=== PATIENT | male | born 1980 | race Caucasian/White ===

== ENCOUNTER 2017-04-04 19:04 | Inpatient (IN) | payer SELFPAY ==
[2017-04-04] VITALS (9 sets, daily range): BP systolic 92–111; BP diastolic 50–57; PULSE 104–117; RESP 24–47; TEMP 99.1; O2SAT 87–100; Ht 180.3 cm; Wt 80.3 kg
[~2017-04-04] VITALS: Ht 180.3 cm; Wt 80.3 kg
[~2017-04-04 19:04] MED LIST: No current meds
--- OUTSIDE RECORDS SUMMARY | 2017-04-04 19:07 | XMS REPORT ---
Author Author Cileo Calloway Organization [facility] [place] Address [address] [place] [address] Care Team Providers Care Straddle Carrier Operator Name Role Phone Cielo Calloway Unavailable [phone] PROBLEMS Type Condition ICD9-CM Code URJ39-MS Code Onset Dates Condition Status SNOMED Code Problem Hyperlipidemia, unspecified hyperlipidemia type E78.5 Active 57516920 Problem Essential hypertension I10 Active 26791859 Assessment Anemia, unspecified type D64.9 Oct, Active 374832809 Problem Depression, unspecified depression type F32.9 Active 10250762 Problem Paresthesias R20.2 Active 82955993 ALLERGIES Unknown Allergies SOCIAL HISTORY No smoking Hx information available PLAN OF CARE Activity Details Pending Test Iron and TIBC (Iron Profile) ,Reason: VITAL SIGNS MEDICATIONS Medication Instructions Dosage Frequency Start Date End Date Duration Status Simvastatin 20 MG Orally Once a day 1 tablet in the evening 24h Oct, 30 day(s) Active Hydrochlorothiazide 12.5 MG Orally Once a day 1 capsule 24h 90 days Active Sertraline HCl 100 MG Orally Once a day 1 tablet 24h 90 days Active Lisinopril 10 MG Orally Once a day 1 tablet 24h 90 days Active RESULTS Name Result Date Reference Range Iron and TIBC (Iron Profile) 2016-11-07 Iron 80 65-175 Iron Binding Capacity 321 260-445 Percent Saturation 25 11-46 Unbound Iron Content 241 126-382 PROCEDURES Procedure Date Ordered Related Diagnosis Body Site IRON PROFILE 2 Nov 07, 2016 IRON PROFILE 1 Nov 07, 2016 IMMUNIZATIONS No Known Immunizations
--- OUTSIDE RECORDS SUMMARY | 2017-04-04 19:07 | XMS REPORT ---
Author Cielo Velázquez Organization [employer] Address Unknown Phone Unavailable Care Team Providers Care Hand Compositor Name Role Phone Cielo Calloway CP Unavailable Allergies, Adverse Reactions, Alerts Substance Reaction Event Type N.K.D.A. Info Not Available Non Drug Allergy Problems Problem Type Condition Code Onset Dates Condition Status Problem Depression, unspecified depression type F32.9 Active Problem Paresthesias R20.2 Active Problem Essential hypertension I10 Active Assessment Paresthesias R20.2 Active Assessment Encounter for immunization Z23 Active Assessment Essential hypertension I10 Active Assessment Depression, unspecified depression type F32.9 Active Medications Medication Code System Code Instructions Start Date End Date Status Dosage Lisinopril [facility] [address]-60 10 MG Orally Once a day 1 tablet Sertraline HCl [facility] [address]-43 100 MG Orally Once a day 1 tablet Hydrochlorothiazide [facility] [address]-82 12.5 MG Orally Once a day 1 capsule Procedures Procedure Coding System Code Date Fluzone/Fluarix IIV4 Pfree (age 3yr & older) CPT-4 12566 Oct 25, 2016 ADMINISTRATION, 1ST IMMUNIZATION CPT-4 82721 Oct 25, 2016 OFFICE VISIT, LOT PORTER-LOW COMPLEXITY (30 MIN.) CPT-4 37997 Oct 25, 2016 Vital Signs Date/Time: Oct 25, 2016 Temperature 98.3 F Height 71.50 in Weight 187.4 lbs Blood Pressure Diastolic 62 mm Hg Blood Pressure Systolic 144 mm Hg Cardiac Monitoring Heart Rate 80 /min BMI 25.77 Index Oximetry 96 % Results No Known Results Immunizations Vaccine Administration Date Fluzone/Fluarix IIV4 Pfree (age 3yr & older) Oct 25, 2016 Summary Purpose [employer] Submission
--- OUTSIDE RECORDS SUMMARY | 2017-04-04 19:07 | XMS REPORT ---
Author Cielo Velázquez [facility] [employer] Address Unknown Phone Unavailable Care Team Providers Care Information Systems Audit Manager Name Role Phone Cielo Calloway CP Unavailable Allergies No Known Allergies Problems Problem Type Condition Code Onset Dates Condition Status Problem Essential hypertension I10 Active Problem Depression, unspecified depression type F32.9 Active Problem Hyperlipidemia, unspecified hyperlipidemia type E78.5 Active Assessment Hyperlipidemia, unspecified hyperlipidemia type E78.5 Active Problem Paresthesias R20.2 Active Assessment Anemia, unspecified type D64.9 Active Medications Medication Code System Code Instructions Start Date End Date Status Dosage Simvastatin [facility] [address]-49 20 MG Orally Once a day Oct 26, 2016 1 tablet in the evening Results No Known Results Summary Purpose [employer] Submission
--- OUTSIDE RECORDS SUMMARY | 2017-04-04 19:08 | XMS REPORT | Continuity of Care Document ---
Author Author [facility] Organization [facility] Address Unknown Phone Unavailable Support Name Relationship Address Phone MARCH, OMER Thrasher DO Caregiver [address] [place] [address] Unavailable Insurance Providers Guarantor Jesus Stafford Address [address] [place] [id number] Email DENIED/NO TO PORTAL Payer Self Pay Subscriber's Name Jesus Stafford Relationship 18 Self Advance Directives Directive Response Recorded Date/Time Advanced Directives Type None 09/28/16 4:18pm Chief Complaint and Reason for Visit Chief Complaint Psychiatric Problems Reason for Visit [id number] Problems Past Problems Medical Problem Onset Date Psychiatric diagnosis Unknown Medications Current Home Medications Medication Dose Units Route Directions Days Qty Instructions Start Date No Current Meds 09/28/16 Social History Social History Problem Response Recorded Date/Time Onset Date Status Hx Substance Use No 09/28/2016 5:04pm Not Applicable Not Applicable Hx Alcohol Use Yes 09/28/2016 5:04pm Not Applicable Not Applicable Query Response Start Date Stop Date Smoking Status Current every day smoker Hospital Discharge Instructions No hospital discharge instructions. Plan of Care Discharge Date 09/29/16 6:49am Disposition 65 TO [facility] Condition at Discharge Stable Prescriptions See Medication Section Functional Status No functional status results. Allergies, Adverse Reactions, Alerts No known allergies. Immunizations Query Response on File Recorded Date/Time Influenza Vaccine Hx NO 09/28/16 5:04pm Vital Signs Acute Vital Signs Vital Response Date/Time Temperature (Fahrenheit) 98.9 deg F (96.8 - 99.1) 09/29/2016 6:49am Temperature (Calculated Celsius) 37.79304 degrees C (36.0 - 37.3) 09/29/2016 6:49am Pulse Rate (adult) 98 bpm (60 - 100) 09/29/2016 6:49am Respiratory Rate 18 breaths/min (10 - 20) 09/29/2016 6:49am O2 Sat by Pulse Oximetry 99 % (90 - 100) 09/29/2016 6:49am Blood Pressure 135/82 mm Hg 09/29/2016 6:49am Height (Feet) 5 feet 09/28/2016 4:10pm Height (Inches) 11.00 inches 09/28/2016 4:10pm Weight (Kilograms) 81.300 kg 09/28/2016 4:10pm Height 5 ft 11 in 09/28/2016 4:10pm Weight 179.24 lb 09/28/2016 4:10pm Body Mass Index 24.0 kg/m^2 09/28/2016 4:10pm Results Laboratory Results Test Name Result Units Flags Reference Collection Date/Time Result Date/ Time Comments White Blood Count 12.0 T/MM3 H 4.5-11.0 09/28/2016 4:pm 09/28/2016 4: 38pm Red Blood Count 4.77 M/MM3 4.50-5.90 09/28/2016 4:pm 09/28/2016 4: 38pm Hemoglobin 14.5 GM/DL 13.5-17.5 09/28/2016 4:pm 09/28/2016 4:38pm Hematocrit 41.8 % 41-53 09/28/2016 4:pm 09/28/2016 4:38pm Mean Corpuscular Volume 87.6 UM3 80-100 09/28/2016 4:pm 09/28/2016 4: 38pm Mean Corpuscular Hemoglobin 30.4 UUG 26-34 09/28/2016 4:pm 2015 4:38pm Mean Corpuscular Hemoglobin Concent 34.7 GM/DL 31-37 09/28/2016 4:09/28/2016 4:38pm RDW Standard Deviation 39.8 FL 36.9-50.2 09/28/2016 4:pm 09/28/2016 4 :38pm Platelet Count 299 T/MM3 130-400 09/28/2016 4:22pm 09/28/2016 4:38pm Mean Platelet Volume 9.2 UM3 L 9.4-12.4 09/28/2016 4:pm 09/28/2016 4: 38pm Neutrophils (%) (Auto) 51.5 % 33-66 09/28/2016 4:pm 09/28/2016 4: 38pm Lymphocytes (%) (Auto) 38.6 % 23-45 09/28/2016 4:pm 09/28/2016 4: 38pm Monocytes (%) (Auto) 6.8 % 0-9.0 09/28/2016 4:pm 09/28/2016 4:38pm Eosinophils (%) (Auto) 2.3 % 0-4 09/28/2016 4:pm 09/28/2016 4:38pm Basophils (%) (Auto) 0.6 % 0-2 09/28/2016 4:pm 09/28/2016 4:38pm Immature Granulocyte % (Auto) 0.2 % 0.0-0.5 09/28/2016 4:pm 2015 4:38pm Absolute Neutrophils (auto) 6.2 T/MM3 1.8-7.7 09/28/2016 4:pm 2015 4:38pm Absolute Lymphocytes (auto) 4.6 T/MM3 1-4.8 09/28/2016 4:2015 4:38pm Absolute Monocytes (auto) 0.8 T/MM3 0-0.8 09/28/2016 4:pm 09/28/2016 4:38pm Absolute Eosinophils (auto) 0.3 T/MM3 0-0.5 09/28/2016 4:pm 2015 4:38pm Absolute Basophils (auto) 0.1 T/MM3 0-0.2 09/28/2016 4:pm 09/28/2016 4:38pm Absolute Immature Granulocyte (auto 0.02 T/MM3 0.00-0.03 09/28/2016 4: 09/28/2016 4:38pm Icterus Index < 2 0-7 09/28/2016 4:pm 09/28/2016 4:43pm Chemistry Specimen Hemolysis < 15 0-25 09/28/2016 4:pm 09/28/2016 4 :43pm 0-25: Specimen Exhibited No Hemolysis. Turbidity < 20 0-20 09/28/2016 4:pm 09/28/2016 4:43pm Sodium Level 146 MEQ/L H 134-144 09/28/2016 4:pm 09/28/2016 4:49pm Potassium Level 3.7 MEQ/L 3.6-5 09/28/2016 4:09/28/2016 4:49pm Chloride Level 101 MEQ/L 98-107 09/28/2016 4:pm 09/28/2016 4:49pm Carbon Dioxide Level 25 MEQ/L 22-30 09/28/2016 4:09/28/2016 4: 49pm Anion Gap 20 MEQ/L H 5-15 09/28/2016 4:09/28/2016 4:49pm Blood Urea Nitrogen 8.0 MG/DL L 9-20 09/28/2016 4:09/28/2016 4: 49pm Creatinine 0.8 MG/DL 0.8-1.5 09/28/2016 4:pm 09/28/2016 4:49pm BUN/Creatinine Ratio 10 RATIO 6-26 09/28/2016 4:09/28/2016 4:49pm Glomerular Filtration Rate Calc 109 09/28/2016 4:pm 09/28/2016 4: 49pm Glucose Level 83 MG/DL 75-110 09/28/2016 4:09/28/2016 4:49pm Calculated Osmolality 278 MOSM/KG 261-280 09/28/2016 4:09/28/2016 4:49pm Calcium Level 9.8 MG/DL 8.4-10.2 09/28/2016 4:09/28/2016 4:49pm Phosphorus Level 4.2 MG/DL 2.5-4.5 09/28/2016 4:09/28/2016 4:49pm Total Bilirubin 0.50 MG/DL 0.20-1.30 09/28/2016 4:09/29/2016 4: 44am Alkaline Phosphatase 69 U/L 38-126 09/28/2016 4:09/29/2016 4:44am Total Protein 7.8 G/DL 6.3-8.2 09/28/2016 4:pm 09/29/2016 4:44am Albumin 4.9 G/DL 3.5-5.0 09/28/2016 4:pm 09/29/2016 4:44am Globulin 2.9 G/DL 2.4-3.6 09/28/2016 4:pm 09/29/2016 4:44am Albumin/Globulin Ratio 1.7 RATIO 1.1-2.2 09/28/2016 4:22pm 09/29/2016 4 :44am Aspartate Amino Transf (AST/SGOT) 77 U/L H 17-59 09/28/2016 4:22pm 09/29 4:44am Alanine Aminotransferase (ALT/SGPT) 75 U/L H 21-72 09/28/2016 4:22pm 02/2016 4:44am Magnesium Level 1.8 MG/DL 1.6-2.3 09/28/2016 4:22pm 09/28/2016 5:06pm Acetaminophen Level < 10 UG/ML L 09-2409/28/2016 4:pm 09/28/2016 4: 49pm TOXIC <4 HR POST INGESTION: >150 MG/L; TOXIC <12 HR POST INGESTION: >50 MG/L Salicylates Level < 1.0 MG/DL L 01-1509/28/2016 4:22pm 09/28/2016 4: 49pm Alcohol, Quantitative 95 MG/DL <10 09/29/2016 2:07am 09/29/2016 2:19am Thyroid Stimulating Hormone (TSH) 1.96 MIU/L 0.47-4.68 09/28/2016 4: 22pm 09/28/2016 5:38pm Urine Collection Type CLEANCATCH-MIDSTREAM 09/28/2016 4:30pm 2015 4:44pm Urine Color YELLOW YELLOW 09/28/2016 4:30pm 09/28/2016 4:44pm Urine Turbidity CLEAR CLEAR 09/28/2016 4:30pm 09/28/2016 4:44pm Urine Specific Hobson <=1.005 L 1.015-1.025 09/28/2016 4:30pm 2015 4:44pm Urine pH 5.5 5.0-8.0 09/28/2016 4:30pm 09/28/2016 4:44pm Urine Leukocyte Esterase NEGATIVE NEGATIVE 09/28/2016 4:30pm 2015 4:44pm Urine Nitrite NEGATIVE NEGATIVE 09/28/2016 4:30pm 09/28/2016 4:44pm Urine Protein NEGATIVE NEGATIVE 09/28/2016 4:30pm 09/28/2016 4:44pm Urine Glucose (UA) NEGATIVE NEGATIVE 09/28/2016 4:30pm 09/28/2016 4: 44pm Urine Ketones NEGATIVE NEGATIVE 09/28/2016 4:30pm 09/28/2016 4:44pm Urine Urobilinogen 0.2 EU/DL NORMAL 09/28/2016 4:30pm 09/28/2016 4: 44pm Urine Bilirubin NEGATIVE NEGATIVE 09/28/2016 4:30pm 09/28/2016 4: 44pm Urine Blood NEGATIVE NEGATIVE 09/28/2016 4:30pm 09/28/2016 4:44pm Urinalysis Comment MICROSCOPIC NOT IND. 09/28/2016 4:30pm 2015 4:44pm Procedures No known history of procedures. Encounters Encounter Location Arrival/Admit Date Discharge/Depart Date Attending Provider Departed Emergency Room [facility] 09/28/16 3:53pm 09/29/16 6: 49am OMER FARIAS DO Recent Diagnosis
--- NOTE | 2017-04-04 19:16 | NUR ---
PROVIDER DR. DAMON AT BEDSIDE.
[2017-04-04] MEDS ORDERED: MULT-933 PO (19:27)
[2017-04-04] MEDS ORDERED: LISI10TA7 PO (19:28)
[2017-04-04] MEDS ORDERED: ACET-3088 PO (19:29)
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
[2017-04-04] MEDS ORDERED: NORMAL SALINE 1,000 ML IV ONE (19:45)
[2017-04-04 19:48] LABS: BASOPHILS % (AUTO) 0.4 % (0-2); EOSINOPHILS # (AUTO) 0.1 T/MM3 (0-0.5); EOSINOPHILS % (AUTO) 1.1 % (0-4); HCT - HEMATOCRIT 33.7 % (41-53); HGB - HEMOGLOBIN 11.9 GM/DL (13.5-17.5); IMMATURE GRANULOCYTE # (AUTO) 0.03 T/MM3 (0.00-0.03); IMMATURE GRANULOCYTE % (AUTO) 0.3 % (0.0-0.5); LYMPHOCYTES # (AUTO) 2.5 T/MM3 (1-4.8); LYMPHOCYTES % (AUTO) 21.9 % (23-45); MEAN CORPUSCULAR HGB 31.6 UUG (26-34); MEAN CORPUSCULAR HGB CONC(MCHC 35.3 GM/DL (31-37); MEAN CORPUSCULAR VOLUME 89.4 UM3 (80-100); MEAN PLATELET VOLUME 10.7 UM3 (9.4-12.4); MONOCYTES # (AUTO) 1.4 T/MM3 (0-0.8); MONOCYTES % (AUTO) 12.5 % (0-9.0); NEUTROPHILS #(AUTO)-ABSOLUTE 7.3 T/MM3 (1.8-7.7); NEUTROPHILS % (AUTO) 63.8 % (33-66); RED BLOOD COUNT 3.77 M/MM3 (4.50-5.90); WBC - WHITE BLOOD COUNT 11.4 T/MM3 (4.5-11.0)
[2017-04-04 19:56] LABS: ACETAMINOPHEN < 10 UG/ML (10-30); ALBUMIN 4.3 G/DL (3.5-5.0); ALBUMIN/GLOBULIN RATIO 1.6 RATIO (1.1-2.2); ALKALINE PHOSPHATASE 76 U/L (38-126); ALT (SGPT) 115 U/L (21-72); ANION GAP 22 MEQ/L (5-15); AST (SGOT) 164 U/L (17-59); BUN/CREATININE RATIO 7 RATIO (6-26); CALCIUM 9.3 MG/DL (8.4-10.2); CHLORIDE 95 MEQ/L (98-107); CO2 - CARBON DIOXIDE 16 MEQ/L (22-30); CREATININE 3.8 MG/DL (0.8-1.5); ETHANOL 169 MG/DL (<10); GLOMERULAR FILTRATION RATE 18; GLUCOSE 142 MG/DL (75-110); SALICYLATE < 1.0 MG/DL (2-20); SODIUM 133 MEQ/L (134-144)
--- NOTE | 2017-04-04 19:58 | NUR ---
CT PT TO CT BY CART AT THIS TIME.
--- NOTE | 2017-04-04 20:07 | NUR ---
RETURN PT RETURNED FROM CT BY CART AT THIS TIME.
[2017-04-04 20:10] LABS: POTASSIUM 2.7 MEQ/L (3.6-5)
[2017-04-04] MEDS ORDERED: POTASSIUM CHLORIDE 20 MEQ TABLET PO ONE (20:15)
[2017-04-04] MEDS ORDERED: NS KCL 20 MEQ 1,000 ML IV ONE (20:15)
--- NOTE | 2017-04-04 20:15 | NUR ---
IVF ORDERS REC'D TO STOP 0.9% NS AT THIS TIME PER DR. DAMON.
--- NOTE | 2017-04-04 20:18 | NUR ---
IVF PT'S BP READS 88/50. PT ASYMPTOMATIC. DR. DAMON NOTIFIED. ORDERS REC'D TO COMPLETE REMAINING 300CC OF 0.9% NS AT THIS TIME.
[2017-04-04 20:50] LABS: THYROID STIM HORMONE-TSH 6.35 MIU/L (0.47-4.68)
[2017-04-04] MEDS ORDERED: MULTI-VIT INF, ADULT 10 ML, THIAMINE 100 MG, FOLIC ACID 1 MG in NORMAL SALINE 1,000 ML IV ONE ×4 (21:00)
[2017-04-04 21:01] LABS: BLOOD, URINE 3+ (NEGATIVE); COLOR,URINE YELLOW (YELLOW); LEUKOCYTE ESTERASE ,URINE NEGATIVE (NEGATIVE); NITRITE,URINE NEGATIVE (NEGATIVE); UROBILINOGEN,URINE 0.2 EU/DL (NORMAL)
[2017-04-04 21:07] LABS: BACTERIA,URINE 1+ (NEGATIVE); HYALINE CASTS, URINE 0-1 /LPF; MUCUS,URINE PRESENT
[2017-04-04 21:08] LABS: RBC,URINE 0-1 /HPF (0-3); SQUAMOUS EPITHELIAL CELL,UR 0-5
[2017-04-04 21:12] LABS: AMPHETAMINE SCREEN,URINE NEGATIVE; BARBITURATE SCREEN,URINE NEGATIVE; BENZODIAZEPINES SCREEN,URINE NEGATIVE; CANNABINOID SCREEN,URINE NEGATIVE; COCAINE SCREEN,URINE NEGATIVE; METHADONE SCREEN, URINE NEGATIVE; METHAMPHETAMINE SCREEN, URINE NEGATIVE; OPIATE SCREEN,URINE NEGATIVE; PHENCYCLIDINE SCREEN,URINE NEGATIVE; TRICYCLIC ANTIDEPRESSANT,URINE NEGATIVE
[2017-04-04 21:15] LABS: MAGNESIUM 2.2 MG/DL (1.6-2.3); PHOSPHORUS 4.7 MG/DL (2.5-4.5)
[2017-04-04] MEDS ORDERED: PROMETHAZINE 25 MG INJECTION IV PRN (21:15)
[2017-04-04] MEDS ORDERED: LORAZEPAM 2 MG/ML INJECTION IV PRN (21:15)
[2017-04-04] MEDS ORDERED: ONDANSETRON 4mg/2ml INJECTION IV PRN (21:15)
--- NOTE | 2017-04-04 21:16 | NUR ---
REPORT CALLED TO LUZ SOTOMAYOR ON CCU. DENIES QUESTIONS.
--- NOTE | 2017-04-04 21:25 | NUR ---
ADMIT PT TAKEN TO CCU, BED 2 BY CART PER THIS RN AT THIS TIME WITH FLUIDS CONTINUING TO INFUSE. PT SLIDES TO CCU BED WITHOUT ASSISTANCE. TOLERATES ACTIVITY WELL.
--- NOTE | 2017-04-04 21:25 | NUR ---
Admit Pt admitted to CCU Bed #2 from ED. Pt transfers from cart to bed by himself. Pt alert to name, place, month. Pt noted to have tremors and very restless, but cooperative with cares. Pt educated on surroundings including call light, bed. Pt HR noted to be 100-110's. Pt on RA. Pt denies nausea, SOA. Pt states he has 6.5/10- pain in lower back. Pt states he has chronic lower back pain and usually takes tylenol. Paddings applied to side rails for seizure precautions. Bed alarm on, will continue to monitor.
--- NOTE | 2017-04-04 21:55 | NUR ---
Dr Tae Strong beams on and assesses pt. Plan of care discussed with pt by Dr Strong.
--- NOTE | 2017-04-04 22:20 | HPPDOC ---
HPI - Adult Date DATE: 04/04/17 TIME: 22:07 General Chief Complaint: seizures and hallucinations History of Present Illness 36 yo M with PMH of EtOH abuse and suicidial ideation wt admission to psychiatric facility in September of 2016 presented to the ED [facility] with his who reports he has been having seizures, hallucinations and multiple falls at home. All associated with alcohol intoxication and alcohol withdrawal. Patient has been drinking large amounts of alcohol daily for about 3 months, he reports a 750ml bottle of vodka a day. Each time the patient tries to drinking , he has severe shaking episodes, severe body spasms, and begins having hallucinations of people who were not there, animals which are not in the house , as well as not recognizing people that he normally knows. Tonight the patient has had all of those symptoms, including a fall earlier in the week that seemed to increase his symptoms, when his found him at home. [place], and checks on him frequently, they are currently . Patient was found to have severe volume depletion in the ED with hypotension and increased BUN and Cr. He was admitted for further IVF and monitoring for his delirium tremens. Past Medical History Past Medical History Chronic alcohol abuse Delirium tremens Current Medications Home Meds Reported Medications Acetaminophen (Tylenol Arthritis) 650 Mg Tablet.er, 1 TAB PO Q4H Y for PAIN 04/04/17 Lisinopril (Lisinopril) 10 Mg Tablet, 10 MG PO DAILY 04/04/17 Multivitamin (Multi-Day Vitamins) 1 Each Tablet, 1 TAB PO DAILY 04/04/17 Allergies: Coded Allergies: No Known Allergies (Unverified , 09/28/16) Family History Family History: non contributory Social History Smoking Status: Never smoker Does patient use chewing tobac: No Second Hand Exposure: No Substance Use Type: does not use Alcohol Intake: daily, 2+ drinks per day Last Drink: hours (ago) (1) Marital Status: Seperated Review of Systems Unable to Obtain ROS Due to: intoxication Constitutional: REPORTS: see HPI Eyes General: DENIES: burning, dryness, erythema, exudate, foreign body sensation, itching, other, pain, photophobia, see HPI, subconjunctival bleed, watering ENMT Balance: see HPI Mouth/Throat: DENIES: bleeding gums, blisters, caries, change in swallowing, change in taste, change in voice, drooling, dry mouth, growths, hoarsness, loose teeth, masses, other, pain, painful swallowing, scratchy throat, see HPI, sore throat, sores, ulcers Cardiovascular DENIES: chest pain, dyspnea on exertion, hx of rheumatic fever, murmur, orthopnea, other, paroxysmal nocturnal dysp, see HPI Rhythm/Rate: DENIES: bradycardia, irregular beat, other, palpitations, see HPI , tachycardia Pulmonary Respiratory: DENIES: cough, dyspnea, exposure to TB, hyperventilation, other, pleuritic chest pain, pneumonia hx, see HPI, sputum, tachypnea GI Upper Abdomen: DENIES: abdominal swelling, dysphagia, food intolerances, heartburn/indigestion, hematemesis, nausea, other, pain, see HPI, vomiting Lower Abdomen: diarrhea, DENIES: blood in stool, marlene-colored stools, constipation, melena, other, pain, painful BM, see HPI Musculoskeletal General: DENIES: atrophy of muscles, cramps, edema, joint pain, joint swelling , other, pain, see HPI, spasm, tenderness, weakness Integumentary Skin: DENIES: color change, infections, itching, lesion, mole, other, rash, see HPI, sores, tumor, ulcers Physical Exam General General Nourishment: other Vital Signs Vital Signs Date Time Temp Pulse Resp B/P Pulse Ox O2 Delivery O2 Flow Rate FiO2 04/04/17 21:25 97.8 111 18 102/49 100 Room Air Height (Feet): 5 Height (Inches): 11.00 Respiratory Brief: FOUND: clear all stark, equal bilaterally Cardiovascular (brief) Cardiac Brief: FOUND: regular rate, regular rhythm Abdomen (brief) Abdominal Brief: FOUND: BS normo active x4, soft Musculoskeletal (brief) Musculoskeletal Brief: FOUND: extremities move equally, NOT FOUND: deformity, loss of motion, other, spasm, tenderness Integumentary (brief) Integumentary Brief: FOUND: other (bruises in various stages of healing) Neurologic (brief) Neurological Brief: FOUND: cranial 2-12 intact Neurologic RN Documented GCS Eye Opening: (4)Spontaneous Verbal: (4)Confused Motor: (6)Obeys Commands Total: Psychiatric (brief) FOUND: other (poor insight) Laboratory Laboratory Tests Test 04/04/17 19:34 04/04/17 19:37 04/04/17 20:54 04/04/17 21:15 Phosphorus Level 4.7MG/DL Magnesium Level 2.2MG/DL White Blood Count 11.4T/MM3 Red Blood Count 3.77M/MM3 Hemoglobin 11.9GM/DL Hematocrit 33.7% Mean Corpuscular Volume 89.4UM3 Mean Corpuscular Hemoglobin 31.6UUG Mean Corpuscular Hemoglobin Concent 35.3GM/DL RDW Standard Deviation 44.7FL Platelet Count 134T/MM3 Mean Platelet Volume 10.7UM3 Immature Granulocyte % (Auto) 0.3% Neutrophils (%) (Auto) 63.8% Lymphocytes (%) (Auto) 21.9% Monocytes (%) (Auto) 12.5% Eosinophils (%) (Auto) 1.1% Basophils (%) (Auto) 0.4% Absolute Immature Granulocyte (auto 0.03T/MM3 Absolute Neutrophils (auto) 7.3T/MM3 Absolute Lymphocytes (auto) 2.5T/MM3 Absolute Monocytes (auto) 1.4T/MM3 Absolute Eosinophils (auto) 0.1T/MM3 Absolute Basophils (auto) 0.0T/MM3 Turbidity < 20 Sodium Level 133MEQ/L Potassium Level 2.7MEQ/L Chloride Level 95MEQ/L Carbon Dioxide Level 16MEQ/L Anion Gap 22MEQ/L Blood Urea Nitrogen 27.0MG/DL Creatinine 3.8MG/DL Glomerular Filtration Rate Calc 18 BUN/Creatinine Ratio 7RATIO Glucose Level 142MG/DL Calculated Osmolality 263MOSM/KG Calcium Level 9.3MG/DL Total Bilirubin 0.50MG/DL Icterus Index < 2 Aspartate Amino Transf (AST/SGOT) 164U/L Alanine Aminotransferase (ALT/SGPT) 115U/L Alkaline Phosphatase 76U/L Total Protein 7.0G/DL Albumin 4.3G/DL Globulin 2.7G/DL Albumin/Globulin Ratio 1.6RATIO Thyroid Stimulating Hormone (TSH) 6.35MIU/L Chemistry Specimen Hemolysis < 15 Salicylates Level < 1.0MG/DL Acetaminophen Level < 10UG/ML Alcohol, Quantitative 169MG/DL Urine Collection Type Cleancatch-midstream Urine Color Yellow Urine Turbidity Sl cloudy Urine pH 5.5 Urine Specific Speer 1.010 Urine Protein 1+ Urine Glucose (UA) Negative Urine Ketones Negative Urine Blood 3+ Urine Nitrite Negative Urine Bilirubin 2+ Urine Urobilinogen 0.2EU/DL Urine Leukocyte Esterase Negative Urine RBC 0-1/HPF Urine WBC 1-3/HPF Urine Squamous Epithelial Cells 0-5 Urine Amorphous Urates Few Urine Bacteria 1+ Urine Hyaline Casts 0-1/LPF Urine Mucus Present Urine Culture Indicated Cult not indicated Urine Opiates Screen NegativeNG/ML Urine Oxycodone Screen NegativeNG/ML Urine Methadone Screen NegativeNG/ML Urine Propoxyphene Screen NegativeNG/ML Urine Barbiturates Screen NegativeNG/ML Urine Tricyclic Antidepressants NegativeNG/ML Urine Phencyclidine Screen NegativeNG/ML Urine Amphetamines Screen NegativeNG/ML Urine Methamphetamines Screen NegativeNG/ML Urine Benzodiazepines Screen NegativeNG/ML Urine Cocaine Screen NegativeNG/ML Urine Cannabinoids Screen NegativeNG/ML Lab Scanned Report REFERENCE [id number] Sepsis Diagnostic Criteria Sepsis Confirmed/Suspected Infection: No Assessment & Plan Problems: (1) Delirium tremens Status: Acute Assessment & Plan: due to Etoh use and withdrawal at home. Patient admitted to the ICU, put on seizure precautions and given librium 25mg Q4H and ativan PRN for withdrawal. Patient reports he is ready to quit drinking. (2) Acute renal insufficiency Status: Acute Assessment & Plan: due to dehydration from 3 months of alcohol use. Give IVF after banana bag, start D5W with NS and 20 of K. Monitor UOP and BUN/cr. (3) Alcohol intoxication Status: Acute Qualifiers: Complication of substance-induced condition: with delirium Qualified Codes : F10.921 - Alcohol use, unspecified with intoxication delirium Assessment & Plan: supportive care for withdrawal (4) Dehydration Status: Acute Assessment & Plan: IVF, patients BP already responding to fluids, continue overnight. (5) Hypokalemia Status: Acute Assessment & Plan: replace PO and IV. Mag WNL. Recheck in AM. (6) Alcohol abuse Status: Acute DVT Prophylaxis: STACEY Amin Code Status Full Code Hospital Course Summary Disclaimer The hospital course summary below is not to be considered part of the above Progress Note. RAS MODI MD April 04, 2017 22:12
[2017-04-04] MEDS: NICOTINE 14 MG PATCH TD SCH (22:31)
[2017-04-04] MEDS: CHLORDIAZEPOXIDE 25 MG CAPSULE PO SCH (22:31)
[2017-04-04] MEDS: OXYCODONE I.R. 5 MG TABLET PO PRN (22:39)
--- NOTE | 2017-04-04 22:39 | NUR ---
Nicoderm/Oxycodone/Librium Librium admin per orders. Educated pt on medication including side effects and reason for medication. Nicoderm offered and pt accepts. Pt states he smokes a pack a day. Oxycodone offered and pt accepts. Pt states he has 6/10 pain in lower back.
--- NOTE | 2017-04-04 23:15 | NUR ---
Friend Pt's friend, Kalina, calls for update. Pt ok's for update to be given to Kalina.
[2017-04-04] MEDS: POTASSIUM CHLORIDE 20 MEQ in D5W 1,000 ML IV SCH (23:40)
--- NOTE | 2017-04-04 23:40 | NUR ---
Pain reassess pt states his lower back pain is 1.5/10 in lower back.
[2017-04-05] VITALS (31 sets, daily range): BP systolic 95–149; BP diastolic 50–91; PULSE 86–133; RESP 19–43; TEMP 98.5–99.1; O2SAT 95–100
--- NOTE | 2017-04-05 01:21 | NUR ---
Ativan Pt noted to be getting more restless/increased tremors/shakes. PRN Ativan discussed with pt and pt states he wants it. PRN Ativan admin.
[2017-04-05] MEDS: CHLORDIAZEPOXIDE 25 MG CAPSULE PO SCH ×5 (02:12→17:40)
--- NOTE | 2017-04-05 02:12 | NUR ---
Ativan Pt continues to be restless/moves about in bed. Pt train of thought is erratic. Pt needs frequent reorientation. Pt HR 110-130's. Discussed one time dose of Ativan (2mg) with pt and he accepts. PRN Ativan admin.
[2017-04-05] MEDS ORDERED: LORAZEPAM 2 MG/ML INJECTION IV ONE (02:15)
--- NOTE | 2017-04-05 02:51 | NUR ---
Haldol Pt HR now up to 150's. Pt continues to move about all over in bed, train of thought continues to be erratic. Pt sweating. Dr Chauhan orders PRN Haldol. PRN Haldol admin for pt comfort.
[2017-04-05] MEDS ORDERED: HALOPERIDOL 5 MG/ML INJECTION IV PRN (03:00)
[2017-04-05] MEDS ORDERED: DEXMEDETOMIDINE 200 MCG/2 ML IV ONE (03:30)
--- NOTE | 2017-04-05 04:05 | NUR ---
Medication reassess/Librium Pt continues to be restless, although pt has been slowing down a little with his movements/tremors. Pt alert to name only at this time. Pt continues to be sweaty. HR down to 120's mostly. Dr Chauhan orders Librium 50 mg q4h and give dose now. Sched Librium admin.
--- NOTE | 2017-04-05 05:00 | NUR ---
Hallucinations Pt resting in bed most of time, but will occasionally sit straight up in bed and attempt to get out of bed. Pt hallucinates: states there are elephants in the room, and that there are poor people trying to come into the boat. Sitter at bedside for pt safety as he has pulled out an IV and pulled apart an O2 monitor. Pt alert to name only. Reorientation given. Pt calmer if nurse in room at bedside and gives reassurance. Will continue to monitor.
[2017-04-05] MEDS ORDERED: LORAZEPAM 2 MG/ML INJECTION IV PRN (05:15)
--- NOTE | 2017-04-05 05:15 | NUR ---
Rest Pt noted to be resting quietly in bed at this time with eyes closed. HR 100-low 110's. Will continue to monitor.
[2017-04-05 06:30] LABS: HCT - HEMATOCRIT 32.7 % (41-53); HGB - HEMOGLOBIN 11.1 GM/DL (13.5-17.5); MEAN CORPUSCULAR HGB 30.8 UUG (26-34); MEAN CORPUSCULAR HGB CONC(MCHC 33.9 GM/DL (31-37); MEAN CORPUSCULAR VOLUME 90.8 UM3 (80-100); MEAN PLATELET VOLUME 10.5 UM3 (9.4-12.4)
[2017-04-05 06:41] LABS: ALBUMIN 3.8 G/DL (3.5-5.0); ALBUMIN/GLOBULIN RATIO 1.5 RATIO (1.1-2.2); ALKALINE PHOSPHATASE 64 U/L (38-126); ALT (SGPT) 99 U/L (21-72); ANION GAP 12 MEQ/L (5-15); AST (SGOT) 151 U/L (17-59); BUN/CREATININE RATIO 12 RATIO (6-26); CALCIUM 8.7 MG/DL (8.4-10.2); CHLORIDE 109 MEQ/L (98-107); CO2 - CARBON DIOXIDE 22 MEQ/L (22-30); CREATININE 1.4 MG/DL (0.8-1.5); GLOMERULAR FILTRATION RATE 57; GLUCOSE 91 MG/DL (75-110); POTASSIUM 3.3 MEQ/L (3.6-5); SODIUM 143 MEQ/L (134-144); TOTAL PROTEIN 6.3 G/DL (6.3-8.2)
[2017-04-05 07:19] LABS: BAND NEUTROPHILS # 0.1 T/MM3; EOSINOPHILS # (MANUAL) 0.4 T/MM3 (0-0.5); LYMPHOCYTES # (MANUAL) 3.3 T/MM3 (1-4.8); MONOCYTES # (MANUAL) 0.7 T/MM3 (0-0.8); NEUTROPHILS #(MANUAL)-ABSOLUTE 5.5 T/MM3 (1.8-7.7); TOTAL CELLS COUNTED 100 %
--- NOTE | 2017-04-05 08:32 | NUR ---
Rest Pt continues to appear to be resting well in bed. VSS. Will continue to monitor.
--- NOTE | 2017-04-05 08:45 | PNPDOC ---
Progress Note Date 04/05/17 I arrived on CCU earlier this morning to evaluate the patient. He had a very difficult night and is finally sleeping. Currently vital signs are stable with heart rate of 93, blood pressure 102/63, O2 sat of 96% on room air. He appears to be sleeping comfortably. He is occasionally snoring. I have reviewed his lab work and H&P. I will return later today when the patient is awake. Overall, lab work looks better this morning. ANGELES HAUSER MD April 05, 2017 08:45
--- NOTE | 2017-04-05 09:18 | DI ---
EXAM: CT HEAD W/O CONTRAST COMPARISON: None available. HISTORY: ITS.REASON: fall several days ago with seizure and hallucinations LOCATION OF DICTATION: [facility] [place]. TECHNIQUE: Axial images were obtained through the brain without IV contrast. Study is reviewed in brain, bone, subdural, and soft tissue windows. The current CT scan was performed using radiation dose-reduction techniques. FINDINGS: The monzon-white junctions are distinct. No sulcal effacement is identified. There is no evidence for intracranial hemorrhage. The cerebrospinal fluid spaces appear unremarkable. No abnormal extra-axial fluid collections are identified to suggest subdural or epidural hematoma. The midline structures appear unremarkable as well. There is no evidence for midline shift or mass effect. The suprasellar cistern and quadrigeminal plate cisterns are intact. No osseous abnormalities are identified. There is no evidence for displaced skull fracture. No space occupying mass is identified. No definite evidence for acute or subacute ischemia is identified. The mastoid air cells are clear. The paranasal sinuses able to be visualized are clear. IMPRESSION: Unremarkable exam. NOTE: This study was reviewed via teleradiology by vRbeulah and a preliminary impression consistent with above findings was conveyed to the ordering clinician immediately after the exam. .
--- NOTE | 2017-04-05 09:35 | NUR ---
Rest Pt continues to rest. Female friend joins at bedside. VSS. Will continue to monitor.
[2017-04-05] MEDS: THIAMINE 100 MG TABLET PO SCH (10:25)
[2017-04-05] MEDS: NICOTINE 14 MG PATCH TD SCH (10:25)
[2017-04-05] MEDS: NICOTINE PATCH REMOVAL TD SCH (10:25)
[2017-04-05] MEDS: POTASSIUM CHLORIDE 20 MEQ in D5W 1,000 ML IV SCH (10:25)
--- NOTE | 2017-04-05 10:46 | NUR ---
Awake Pt awakens easily when name is called. takes pills whole without difficulty. Answers a/o questions appropriately, but is delayed with answers. Does still make some "off the wall" comments. Asks "How's my bird flu" and talks in depth about how fun the [employer] ride was. Female friend remains at bedside. Will continue to monitor.
[2017-04-05 13:55] LABS: INR 0.91 (0.76-1.04); PROTHROMBIN TIME 9.9 SEC (9.31-12.49)
[2017-04-05 14:02] LABS: ALBUMIN 3.7 G/DL (3.5-5.0); ANION GAP 10 MEQ/L (5-15); BUN/CREATININE RATIO 12 RATIO (6-26); CALCIUM 8.6 MG/DL (8.4-10.2); CHLORIDE 109 MEQ/L (98-107); CO2 - CARBON DIOXIDE 23 MEQ/L (22-30); CREATININE 0.9 MG/DL (0.8-1.5); GLOMERULAR FILTRATION RATE 95; GLUCOSE 105 MG/DL (75-110); PHOSPHORUS 2.6 MG/DL (2.5-4.5); POTASSIUM 3.6 MEQ/L (3.6-5); SODIUM 142 MEQ/L (134-144)
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
--- NOTE | 2017-04-05 17:05 | NUR ---
Status Pt has done well this afternoon. No hallucinations (auditory or visual) have been noted since approx 1200. Pt has eaten and had enough fluids throughout shift. Up to BR with assistance of 1. Much better on feet as the day as progressed. Pt c/o minor lower back pain that he reports as normal and has denied any need for pain medication. Family has remained at bedside throughout shift. Pt falls asleep very quickly and easily, but arouses very easily as well. Will continue to monitor.
[2017-04-05] MEDS: FOLIC ACID 1 MG TABLET PO SCH (17:40)
[2017-04-05] MEDS: OXYCODONE I.R. 5 MG TABLET PO PRN (20:10)
[2017-04-05] MEDS ORDERED: GUAIFENESIN PO PRN (20:30)
[2017-04-05] MEDS ORDERED: CODEINE PO PRN (20:30)
[2017-04-06] VITALS (37 sets, daily range): BP systolic 97–160; BP diastolic 56–100; PULSE 61–114; RESP 17–57; TEMP 97.3–99; O2SAT 93–100
[2017-04-06] MEDS: CHLORDIAZEPOXIDE 25 MG CAPSULE PO SCH ×3 (00:43→18:36)
[2017-04-06 01:34] LABS: IRON 210 UG/DL (49-181)
[2017-04-06 02:43] LABS: FOLATE 14.9 NG/ML (2.76-20); VITAMIN B12 - BATCH > 1000 PG/ML (239-931)
[2017-04-06 04:39] LABS: BASOPHILS % (AUTO) 0.4 % (0-2); EOSINOPHILS # (AUTO) 0.5 T/MM3 (0-0.5); EOSINOPHILS % (AUTO) 6.1 % (0-4); HCT - HEMATOCRIT 32.7 % (41-53); HGB - HEMOGLOBIN 11.1 GM/DL (13.5-17.5); IMMATURE GRANULOCYTE # (AUTO) 0.01 T/MM3 (0.00-0.03); IMMATURE GRANULOCYTE % (AUTO) 0.1 % (0.0-0.5); LYMPHOCYTES # (AUTO) 2.7 T/MM3 (1-4.8); LYMPHOCYTES % (AUTO) 34.9 % (23-45); MEAN CORPUSCULAR HGB 31.3 UUG (26-34); MEAN CORPUSCULAR HGB CONC(MCHC 33.9 GM/DL (31-37); MEAN CORPUSCULAR VOLUME 92.1 UM3 (80-100); MEAN PLATELET VOLUME 9.6 UM3 (9.4-12.4); MONOCYTES % (AUTO) 13.6 % (0-9.0); NEUTROPHILS #(AUTO)-ABSOLUTE 3.4 T/MM3 (1.8-7.7); NEUTROPHILS % (AUTO) 44.9 % (33-66); RED BLOOD COUNT 3.55 M/MM3 (4.50-5.90); WBC - WHITE BLOOD COUNT 7.7 T/MM3 (4.5-11.0)
[2017-04-06 04:53] LABS: ALBUMIN 3.7 G/DL (3.5-5.0); ALBUMIN/GLOBULIN RATIO 1.5 RATIO (1.1-2.2); ALKALINE PHOSPHATASE 60 U/L (38-126); ALT (SGPT) 98 U/L (21-72); ANION GAP 9 MEQ/L (5-15); AST (SGOT) 117 U/L (17-59); BUN/CREATININE RATIO 14 RATIO (6-26); CHLORIDE 111 MEQ/L (98-107); CO2 - CARBON DIOXIDE 24 MEQ/L (22-30); CREATININE 0.8 MG/DL (0.8-1.5); GLOMERULAR FILTRATION RATE 109; GLUCOSE 107 MG/DL (75-110); POTASSIUM 3.7 MEQ/L (3.6-5); SODIUM 144 MEQ/L (134-144); TOTAL PROTEIN 6.2 G/DL (6.3-8.2)
--- NOTE | 2017-04-06 05:37 | NUR ---
Shift Summary Patient has slept well during the night and has verbalized feeling much better. PRN pain meds given for chronic back pain once. No SOA or nausea reported. VSS. HR has been in the 70-80s. Patient remains on RA. Continues to have tremors in hands, but patient says that is his normal.
[2017-04-06] MEDS: THIAMINE 100 MG TABLET PO SCH (08:36)
[2017-04-06] MEDS: NICOTINE 14 MG PATCH TD SCH (08:39)
[2017-04-06] MEDS: NICOTINE PATCH REMOVAL TD SCH (08:39)
--- NOTE | 2017-04-06 10:20 | NUR ---
PSYCHE PATIENT'S SISTER IN ROOM. PATIENT ASKS THIS NURSE WHEN HE WILL BE DISMISSED, STATING HE DOES NOT WANT TO SIT AROUND HERE WAITING TO BE EVALUATED. THIS NURSE CALLED TO FIND OUT POSSIBLE TIME FOR DR MARTINEZ TO SEE PATIENT, WAS TOLD WOULD BE LATE TODAY. DR HAUSER NOTIFIED OF PATIENT BECOMING AGITATED AND NOT WANTING TO STAY, AND ABOUT THE TIME TABLE. WHEN PATIENT INFORMED OF THE TIMING OF EVALUATION HE WAS POLITE AND THANKED FOR THE INFORMATION. DID NOT SAY ANYTHING AGAIN ABOUT WANTING TO LEAVE. SISTER IS ENCOURAGING TO STAY AND HAVE EVALUATION TODAY.
[2017-04-06 10:45] LABS: IRON % SAT (TRANSF %SAT)(CALC) 88 % (13-59); TOTAL IRON BINDING CAPACITY 240 UG/DL (261-497)
[2017-04-06] MEDS: OXYCODONE I.R. 5 MG TABLET PO PRN ×3 (12:08→20:10)
[2017-04-06] MEDS ORDERED: CHLORDIAZEPOXIDE 25 MG CAPSULE PO SCH (12:15)
[2017-04-06] MEDS: FOLIC ACID 1 MG TABLET PO SCH (12:54)
[2017-04-06] MEDS ORDERED: CHLORDIAZEPOXIDE 25 MG CAPSULE PO ONE (13:30)
--- NOTE | 2017-04-06 13:45 | NUR ---
NEURO TREMORS NOTED THIS AM, NORI WHEN UP IN ROOM WITH DAILY CARES, ETC. AGAIN NOTING AN INCREASE IN TREMORS OF HANDS BILATERALLY. DR HAUSER NOTIFIED, EXTRA LIBRIUM ADMINISTERED ORDERED
--- NOTE | 2017-04-06 17:05 | NUR ---
SINTIA THIS WORKER MET WITH PT AGAIN ON THIS DATE. REVIEWED DISCHARGE PLAN AND FOLLOW UP APPOINTMENTS. PT IS IN AGREEMENT WITH THIS PLAN. PT REPORTED EAGERNESS TO GET INTO TREATMENT. PT IS PLANNING TO STAY WITH HIS AT TIME OF DISCHARGE BECAUSE HE DOESN'T FEEL THAT HE COULD MAINTAIN HIS SOBRIETY IF LIVING AT HOME ALONE. PT DENIED ANY OTHER NEEDS. THIS WORKER ENCOURAGED PT TO CONTACT THIS WORKER WITH ANY ADDITIONAL NEEDS EVEN AFTER DISCHARGE.
--- NOTE | 2017-04-06 18:50 | NUR ---
STATUS/PSYCHE HAS BEEN VERY OPEN TO STAFF TODAY, COMPLIANT WITH CARES. VERBALIZES PERSONAL COMMITMENT TO STAY CLEAN. RIGHT NOW VERBALIZES NEED FOR CIGARETTE, WANTING TO GO OUT TO SMOKE. SCHEDULED LIBRIUM GIVEN, ATIVAN 1 MG IVP GIVEN.
--- NOTE | 2017-04-06 19:15 | NUR ---
PSYCHE MORE RELAXED WITH ATIVAN
--- NOTE | 2017-04-06 19:47 | PNPDOC ---
Subjective Date DATE: 04/06/17 TIME: 19:37 Subjective The patient was seen this morning in his room accompanied by his sister. He stated he was feeling much better. He has been eating well. He denies any abdominal pain or nausea. He denies any pain other than his chronic low back pain. He denies any confusion or hallucinations today. He has some mild anxiety and some mild tremulousness, but states his tremors are better than usual. He does admit to depression and is open to trying medication for depression. He also would like to go to rehabilitation for his alcoholism. Objective Vital Signs Vital signs Vital Signs Date Time Temp Pulse Resp B/P Pulse Ox O2 Delivery O2 Flow Rate FiO2 04/06/17 16:13 99.0 84 25 133/78 100 Room Air GEN-alert, oriented 3, no acute distress HEENT-sclera anicteric, oropharynx is moist NECK-neck is supple CV-regular rate and rhythm CHEST-clear to auscultation bilaterally ABD-soft, nontender, nondistended with positive bowel sounds. Mild hepatomegaly -no [place] EXT-no edema NEURO-mild tremulousness, no focal deficits, oriented, normal thought processes SKIN-warm and dry and without rashes Height (Feet): 5 Height (Inches): 11.00 Weight (Kilograms): 71.900 Laboratory Laboratory Laboratory Tests 04/05/17 06:09 04/05/17 13:38 04/06/17 04:16 Laboratory Tests 04/05/17 06:09 04/06/17 04:16 Sepsis Diagnostic Criteria Sepsis Confirmed/Suspected Infection: No Assessment & Plan Problems: (1) Delirium tremens Status: Acute Assessment & Plan: due to Etoh use and withdrawal at home. Patient admitted to the ICU, put on seizure precautions and given librium 25mg Q4H and ativan PRN for withdrawal. Patient reports he is ready to quit drinking. (2) Acute renal insufficiency Status: Acute Assessment & Plan: due to dehydration from 3 months of alcohol use. Give IVF after banana bag, start D5W with NS and 20 of K. Monitor UOP and BUN/cr. (3) Alcohol intoxication Status: Acute Qualifiers: Complication of substance-induced condition: with delirium Qualified Codes : F10.921 - Alcohol use, unspecified with intoxication delirium Assessment & Plan: supportive care for withdrawal (4) Dehydration Status: Acute Assessment & Plan: IVF, patients BP already responding to fluids, continue overnight. (5) Hypokalemia Status: Acute Assessment & Plan: replace PO and IV. Mag WNL. Recheck in AM. (6) Alcohol abuse Status: Acute Assessment 04/06/2017 Impression Severe delirium tremens on admission-markedly improving on Librium Probable seizures related to delirium tremens Acute kidney injury secondary to dehydration-resolved Hypertension-chronically on lisinopril but on hold initially with acute kidney injury Dehydration-improved Alcoholism with acute alcohol intoxication on admission Hypokalemia-resolved Depression with history of hospitalization at [place] Anemia with normal B-12 and folate and high iron level Plan I did decrease Librium this morning however the patient developed increased tremulousness and tachycardia and Librium dose was increased back to 50 mg by mouth every 6 hours. Restart lisinopril for hypertension Await psychiatric recommendations Hemochromatosis gene analysis ordered for tomorrow regarding elevated iron levels Discussed with social media designer, case management-[facility]. He also has an outpatient evaluation scheduled for alcohol rehabilitation Code Status Full Code Hospital Course Summary Disclaimer The hospital course summary below is not to be considered part of the above Progress Note. ANGELES HAUSER MD April 06, 2017 19:47
[2017-04-06] MEDS: SERTRALINE 25 MG TABLET PO SCH (20:09)
[2017-04-06] MEDS: LISINOPRIL 10 MG TABLET PO SCH (20:24)
--- NOTE | 2017-04-06 21:00 | NUR ---
status pt is up walking in hallway "stretching his legs". states that he has some lower back pain. scheduled oxy is given see mar for details. pt request sandwich and potato chips this is provided on request. pt has tremor but states they are better now then they have been over the last two days. he voides no other wants or needs at this time. call light and all personal items are in easy reach.
--- NOTE | 2017-04-06 22:00 | GENHPPDOC ---
[facility] 04/06/17 Start Time: 17:00 Stop Time: 17:30 >50% of this visit spent in counseling/coordination care. Chief Complaint: Depression History of Present Illness Patient is a 36 y/o male with a history of alcohol abuse who was admitted to [facility] on 04/04/17 after being brought by his who reports he has been having seizures, hallucinations, and multiple falls at home. Patient has a long history of alcohol abuse and these have occurred in the context of intoxication/withdrawal. Patient reported drinking 750 mL of vodka daily x 3 months. Patient was admitted for alcohol withdrawal/DTs. Psychiatry was consulted in regards to patient's depression and recommendations for medication management. Past psych history: Patient was psychiatrically hospitalized in September 2016 for SI in the context of heavy alcohol use. Patient assessed by [facility] Willis Enamorado as well as Dr. Sal. On interview , patient is calm and cooperative. He states his last drink was prior to admission. He has been diagnosed with depression in the past and took Zoloft 100mg for 3 years, which he found helpful. He stopped taking it ~2 months ago, which is concurrent with around the time he began to drink more. He adamantly denies SI and lists his family as his biggest protective factor. Patient's BP continues to be labile and he has a tremor on exam, though he states he has a tremor at baseline. Patient estimates the last time he hallucinated was during an episode of intoxication where he was confused and thought his father/sister were present but they were not. He denies other symptoms consistent with psychosis or depression with intoxication. He denies any history of manic symptoms, on or off medication. Patient endorses episodic insomnia (does not appear consistent with william), decreased energy, anxiety, feelings of worthlessness/guilt, anhedonia, low self-esteem. Patient would like to seek inpatient substance abuse treatment in regards to recommendations for treatment of depression. Patient has been to inpatient tratment repeatedly in the past. He has used other drugs recreationally in the past, as a teenager and last in 2014. Patient appeared to have some cognitive changes on interview and scored 20/30 ( education level:GED) on SLUMS. Depression: sad, decreased energy, change in appetite, social withdrawl, sleep disturbance, worthless, guilty, poor concentration Psychosis: hallucinations (only in context of alcohol use/withdrawal, not currently) Past Medical History Past Medical History Chronic alcohol abuse Delirium tremens Current Medications Home Meds Reported Medications Acetaminophen (Tylenol Arthritis) 650 Mg Tablet.er, 1 TAB PO Q4H Y for PAIN 04/04/17 Lisinopril (Lisinopril) 10 Mg Tablet, 10 MG PO DAILY 04/04/17 Multivitamin (Multi-Day Vitamins) 1 Each Tablet, 1 TAB PO DAILY 04/04/17 Allergies: Coded Allergies: No Known Allergies (Unverified , 04/04/17) Family History Family History: non contributory Vaccines NO No Social History Smoking Status: Never smoker Does patient use chewing tobac: No Second Hand Exposure: No Substance Use Type: does not use Alcohol Intake: daily, 2+ drinks per day Last Drink: hours (ago) (1) Marital Status: Seperated Advance Directives: No DPOA for Healthcare Only Review of Systems Constitutional: REPORTS: appetite decrease, difficulty falling asleep, fatigue , insomnia, weight loss, DENIES: chills, fever Eyes General: DENIES: burning, dryness, erythema, exudate, foreign body sensation, itching, other, pain, photophobia, see HPI, subconjunctival bleed, watering Vision: DENIES: acuity, aura, blurring, bright flashes, change in color, double vision, glare, loss of visual stark, night blindness, other, see HPI, tunnel vision, vision changes ENMT Ears: DENIES: drainage, erythema, foreign body, other, pain, see HPI Cardiovascular DENIES: chest pain, dyspnea on exertion, hx of rheumatic fever, murmur, orthopnea, other, paroxysmal nocturnal dysp, see HPI Pulmonary Respiratory: DENIES: cough, dyspnea, exposure to TB, hyperventilation, other, pleuritic chest pain, pneumonia hx, see HPI, sputum, tachypnea GI Upper Abdomen: DENIES: abdominal swelling, dysphagia, food intolerances, heartburn/indigestion, hematemesis, nausea, other, pain, see HPI, vomiting Lower Abdomen: DENIES: blood in stool, marlene-colored stools, constipation, diarrhea, melena, other, pain, painful BM, see HPI Male: DENIES: circumcised, discharge, dribbling, dyspareunia, ejaculate dysfunction, erectile dysfunction, frequency, hesitancy, lesions, libido changes , other, phimosis/paraphimosis, retention, see HPI, testicular mass/swelling, testicular pain Neurological General: blackouts, memory disturbances, seizures, tremor (reports at baseline) , DENIES: headache Psychiatric Psychiatric: anxiety, depression, DENIES: hallucinations, suicidal ideation/ attempt Endocrine DENIES: heat/cold intolerance, other, polydipsia, polyphagia, see HPI Hematologic/Lymphatic DENIES: anemia, bleeding gums, easy bruising, frequent nosebleeds, lymphadenopathy, other, see HPI Allergic/Immunological DENIES: allergic reactions, frequent infections, hives, other, see HPI, sneezing All Other Systems All Other Systems: Reviewed Generations Exam Vitals Vital Signs Date Time Temp Pulse Resp B/P Pulse Ox O2 Delivery O2 Flow Rate FiO2 04/06/17 16:13 99.0 84 25 133/78 100 Room Air Physical examination performed by the hospitalist. Height (Feet): 5 Height (Inches): 11.00 Mental Status Exam Muscle Strength/Tone: Normal Dressing: Casual Grooming: Good Attitude: Cooperative Motor Activity: Tremors (patient states present at baseline) Eye Contact: Good Speech: Normal Volume: Normal Rhythm: Appropriate Rhythm Sensory: Alert Orientation: Oriented X4 Mood: Depressed Affect: Stable Rate of Thoughts: Appropriate Rate Thought Organization: Organized Associations: Intact Abstract Reasoning: Intact, able to abstract Thought Content: Ruminations (particularly in regards to substance use, optimistic re: future) Perception/Psychotic: Perception Normal Attention Span/Concentration: Other (Decreased from baseline) Language: Naming Intact Fund of Knowledge: Other (Decreased - SLUMS 20/30) Memory: Other (Some recent memory impairment per interview/SLUMS) Suicidal Ideation: Denies Homicidal Ideation: Denies Insight: Fair Judgment: Fair Impulse Control: Good Laboratory Tests Test 04/06/17 04:16 White Blood Count 7.7T/MM3 Red Blood Count 3.55M/MM3 Hemoglobin 11.1GM/DL Hematocrit 32.7% Mean Corpuscular Volume 92.1UM3 Mean Corpuscular Hemoglobin 31.3UUG Mean Corpuscular Hemoglobin Concent 33.9GM/DL RDW Standard Deviation 48.3FL Platelet Count 160T/MM3 Mean Platelet Volume 9.6UM3 Immature Granulocyte % (Auto) 0.1% Neutrophils (%) (Auto) 44.9% Lymphocytes (%) (Auto) 34.9% Monocytes (%) (Auto) 13.6% Eosinophils (%) (Auto) 6.1% Basophils (%) (Auto) 0.4% Absolute Immature Granulocyte (auto 0.01T/MM3 Absolute Neutrophils (auto) 3.4T/MM3 Absolute Lymphocytes (auto) 2.7T/MM3 Absolute Monocytes (auto) 1.0T/MM3 Absolute Eosinophils (auto) 0.5T/MM3 Absolute Basophils (auto) 0.0T/MM3 Turbidity < 20 Sodium Level 144MEQ/L Potassium Level 3.7MEQ/L Chloride Level 111MEQ/L Carbon Dioxide Level 24MEQ/L Anion Gap 9MEQ/L Blood Urea Nitrogen 11.0MG/DL Creatinine 0.8MG/DL Glomerular Filtration Rate Calc 109 BUN/Creatinine Ratio 14RATIO Glucose Level 107MG/DL Calculated Osmolality 276MOSM/KG Calcium Level 9.0MG/DL Total Bilirubin 0.60MG/DL Icterus Index < 2 Aspartate Amino Transf (AST/SGOT) 117U/L Alanine Aminotransferase (ALT/SGPT) 98U/L Alkaline Phosphatase 60U/L Total Protein 6.2G/DL Albumin 3.7G/DL Globulin 2.5G/DL Albumin/Globulin Ratio 1.5RATIO Chemistry Specimen Hemolysis < 15 Assessment and Plan (1) Delirium tremens (2) Alcohol use disorder, severe, dependence (3) Alcohol withdrawal (4) Depressive disorder Patient is not an imminent danger to self and does not require inpatient psychiatric stabilization. Patient in agreement with resuming medication for depression and following up with [facility] in [place] for further outpatient med management. He felt Zoloft was helpful in past. Agrees to start 25mg PO daily x 3 days and increase to 50mg. Patient was previously taking 100mg daily and they may increase to this dose on an outpatient basis. Patient is also seeking inpatient substance abuse treatment at [facility]. In regards to withdrawals - patient still exhibiting some vital sign lability at this time though he reports hypertension and constant tremor at baseline. He reports last drink was 5/10 prior to admission. Symptoms of DTs (fluctuating disturbance consciousness, agitation and tremulousness, autonomic instability, hyperpyrexia, persistent visual and auditory hallucinations, and disorientation ) may begin 2-4 days after last drink. Alcohol withdrawal seizures can occur up to 5 days following cessation - recommend continued use of benzodiazepines as necessary to decrease autonomic hyperactivity and prevent seizure activity. May consider scheduled benzo taper depending on dose required as withdrawal progresses. Thank you for this consult - please contact team with any further questions. KENTON SAL MD April 06, 2017 18:04
[2017-04-07] VITALS (35 sets, daily range): BP systolic 108–161; BP diastolic 58–89; PULSE 65–95; RESP 16–50; TEMP 97.6–98; O2SAT 88–100
--- NOTE | 2017-04-07 00:01 | NUR ---
medication pt is resting attempts to awake fail. pt arouses but does not stay awake long enough to take scheduled librium. wasted at this time.
[2017-04-07] MEDS: CHLORDIAZEPOXIDE 25 MG CAPSULE PO SCH ×3 (00:15→06:22)
--- NOTE | 2017-04-07 06:12 | NUR ---
shift summary pt rests without waking. will arouse to speech but returns to rest quickly. no signs of discomfort are noted. pt did not get up restroom after he went to sleep for the night. pt voices no wants or needs. status improved during this shift. vitals are within normal limits. telem reads ns through the night. call light and all personal items are in easy reach.
[2017-04-07] MEDS: THIAMINE 100 MG TABLET PO SCH (08:56)
[2017-04-07] MEDS: SERTRALINE 25 MG TABLET PO SCH (08:56)
[2017-04-07] MEDS: FOLIC ACID 1 MG TABLET PO SCH (08:56)
[2017-04-07] MEDS: LISINOPRIL 10 MG TABLET PO SCH (08:56)
[2017-04-07] MEDS: NICOTINE 14 MG PATCH TD SCH (08:57)
[2017-04-07] MEDS: NICOTINE PATCH REMOVAL TD SCH (08:57)
--- NOTE | 2017-04-07 10:10 | NUR ---
CM DOCTOR ASKED THIS WORKER TO SPEAK WITH PT, RE: HIS DC PLAN. PT STATED TO DOCTOR THAT HE WANTS TO LEAVE TODAY. TEAM IS RECOMMENDING THAT HE REMAIN HERE TO MONITOR FOR WITHDRAWAL SYMPTOMS. THIS WORKER SPOKE WITH PT. INTRODUCED SELF, EXPLAINED ROLE, PROVIDED CONTACT INFO. DISCUSSED PT'S OPTIONS OF REMAINING HERE THE RECOMMENDED 5 DAYS TO MONITOR FOR SYMPTOMS VS. RETURNING HOME TODAY. HEAVILY ENCOURAGED PT TO REMAIN HERE AND THE HIGH RISK OF DRINKING AGAIN IF HE LEAVES. HE STATED HE HAS A SUPPORT SYSTEM/FRIEND THAT WILL PICK HIM UP, AND STAY WITH HIM THE WHOLE TIME BETWEEN NOW AND HIS APPOINTMENT ON SUN. WITH PT'S PERMISSION, THIS WORKER CALLED [facility], SPOKE WITH [facility]Y, VERIFIED THAT [facility] COULD [employer]AR ENGINEERING TEACHER PT AFTER HIS ASSESSMENT ON SUN, APRIL 09, 3 PM, AND TAKE HIM TO [facility]. RELAYED THIS TO PT. DISCUSSED WITH PT HE HAS THE RIGHT TO LEAVE HERE AT ANYTIME, AND HE WAS VERY AWARE OF THIS AND STATING THIS HIMSELF. HE SAID HE WILL TALK TO HIS SUPPORT SYSTEM/FRIEND FOR HER OPINION ABOUT WHETHER TO STAY UNTIL SUN OR TO LEAVE TODAY. UPDATED RN AND DOCTOR OF THE ABOVE. Addendum: 04/07/17 at 1015 by ROSALINDA CHU Amended: Links added.
--- NOTE | 2017-04-07 10:16 | PNPDOC ---
Subjective Date DATE: 04/07/17 TIME: 10:00 Subjective Feeling much better this morning. Mild tremor that he states is baseline for him. Wanting to go home today; reminds me that he is here voluntarily and not court ordered. Discussed plans for inpatient treatment and recommendations he remain inpatient until transferred. No dyspnea, fevers, chills. Not anxious. Objective Vital Signs Vital signs Vital Signs Date Time Temp Pulse Resp B/P Pulse Ox O2 Delivery O2 Flow Rate FiO2 04/07/17 04:08 75 20 04/07/17 04:00 97.6 120/65 97 04/06/17 16:13 Room Air Telemetry Rhythm: Sinus Rhythm Height (Feet): 5 Height (Inches): 11.00 Weight (Kilograms): 71.900 General General Appearance: Alert, Orientated x 3, Cooperative Eyes (Brief) Eyes: FOUND: EOMI, PERRL, NOT FOUND: scleral icterus Respiratory (Brief) Respiratory: FOUND: clear all stark, equal bilaterally, NOT FOUND: rales Abdomen (Brief) Abdominal: FOUND: soft, NOT FOUND: distended, tender Extremities (Brief) Extremity : Comments BLE with no edema Integumentary (Brief) Integumentary: FOUND: dry, pink, warm, NOT FOUND: rash Psychiatric (Brief) Psychiatric: FOUND: alert, attentive, normal affect, oriented Laboratory Laboratory Laboratory Tests 04/05/17 13:38 04/06/17 04:16 Laboratory Tests 04/06/17 04:16 Sepsis Diagnostic Criteria Sepsis Confirmed/Suspected Infection: No Assessment & Plan Problems: (1) Delirium tremens Status: Acute Assessment & Plan: Due to Etoh use and withdrawal at home. Patient admitted to the ICU, put on seizure precautions and currently on librium 50 mg Q6H scheduled. Wants to quit drinking. (2) Acute renal insufficiency Status: Acute Assessment & Plan: due to dehydration from 3 months of alcohol use. Give IVF after banana bag, start D5W with NS and 20 of K. Monitor UOP and BUN/cr. (3) Alcohol intoxication Status: Acute Qualifiers: Complication of substance-induced condition: with delirium Qualified Codes : F10.921 - Alcohol use, unspecified with intoxication delirium Assessment & Plan: supportive care for withdrawal (4) Dehydration Status: Resolved Assessment & Plan: Resolved with IVF (5) Hypokalemia Status: Resolved Assessment & Plan: Resolved with IV/PO replacement (6) Alcohol abuse Status: Acute Assessment 04/07/2017 Severe delirium tremens on admission-markedly improving on high dose scheduled librium Probable seizures related to delirium tremens Acute kidney injury secondary to dehydration-resolved Hypertension-chronically on lisinopril but on hold initially with acute kidney injury, stable BP on benzodiazepines Dehydration-improved with IVF Alcoholism with acute alcohol intoxication on admission, previous failed IP and OP treatment Hypokalemia-resolved with replacement Depression with history of hospitalization at [place] for SI, denies any SI currently Anemia with normal B-12 and folate and high iron level Plan Holding librium acutely to determine if he has further withdrawal symptoms Do not plan to discharge with benzodiazepines and I feel he is very high risk for further drinking at home Continue lisinopril for hypertension Psych recommendations reviewed; appreciate assistance Discussed with case management, has [facility] intake on 5/15 AM and [facility] could pick him up from there for admission if he is willing Recommended to him that he remain inpatient, transfer to the floor, continue on librium taper the next 2 days and discharge to his [facility] assessment Hemochromatosis gene analysis ordered and pending due to high Fe levels If he chooses to discharge, will allow him to go later today and f/u OP with [facility] and intake for IP rehab DVT Prophylaxis: Lovenox Code Status Full Code Hospital Course Summary Disclaimer The hospital course summary below is not to be considered part of the above Progress Note. Hospital Course Summary 04/07/2017 Severe delirium tremens on admission-markedly improving on high dose scheduled librium Probable seizures related to delirium tremens Acute kidney injury secondary to dehydration-resolved Hypertension-chronically on lisinopril but on hold initially with acute kidney injury, stable BP on benzodiazepines Dehydration-improved with IVF Alcoholism with acute alcohol intoxication on admission, previous failed IP and OP treatment Hypokalemia-resolved with replacement Depression with history of hospitalization at [facility] for SI, denies any SI currently Anemia with normal B-12 and folate and high iron level Plan Holding librium acutely to determine if he has further withdrawal symptoms Do not plan to discharge with benzodiazepines and I feel he is very high risk for further drinking at home Continue lisinopril for hypertension Psych recommendations reviewed; appreciate assistance Discussed with case management, has [facility] intake on 5/15 AM and [facility] could pick him up from there for admission if he is willing Recommended to him that he remain inpatient, transfer to the floor, continue on librium taper the next 2 days and discharge to his [facility] assessment Hemochromatosis gene analysis ordered and pending due to high Fe levels If he chooses to discharge, will allow him to go later today and f/u OP with [facility] and intake for IP rehab TAMMI MCKINNEY MD April 07, 2017 10:09
[2017-04-07] MEDS: ACETAMINOPHEN 500 MG TABLET PO PRN ×2 (12:10→20:56)
[2017-04-07] MEDS ORDERED: CHLORDIAZEPOXIDE 5 MG CAPSULE PO SCH (12:15)
--- NOTE | 2017-04-07 13:10 | NUR ---
PAIN PT REPORTS HEADACHE PAIN 8/10. ADMINISTERED PRN TYLENOL. AT REASSESSMENT, PT REPORTS PAIN 2/10, DENIES NEED FOR MEDICATION. AMBULATION IN ROOM HELPED PT.
--- NOTE | 2017-04-07 13:46 | DSPDOC ---
General Date Date DATE: 04/07/17 TIME: 13:41 Attending Physician Yolie Rowan MD Admitting Physician Yolie Rowan MD Consulting Physician Vanda Paredes MD Admitting Diagnosis delirium tremens Discharge Diagnosis Delirium tremens/acute alcohol withdrawal MARKELL, secondary to dehydration, resolved with IVF Chronic alcohol abuse Elevated serum Fe levels, w/u for hemochromatosis pending Tobacco Dependence Laboratory Laboratory Tests Test 04/06/17 04:16 04/06/17 18:13 White Blood Count 7.7T/MM3 (4.5-11.0) Red Blood Count 3.55M/MM3 (4.50-5.90) Hemoglobin 11.1GM/DL (13.5-17.5) Hematocrit 32.7% (41-53) Mean Corpuscular Volume 92.1UM3 (80-100) Mean Corpuscular Hemoglobin 31.3UUG (26-34) Mean Corpuscular Hemoglobin Concent 33.9GM/DL (31-37) RDW Standard Deviation 48.3FL (36.9-50.2) Platelet Count 160T/MM3 (130-400) Mean Platelet Volume 9.6UM3 (9.4-12.4) Immature Granulocyte % (Auto) 0.1% (0.0-0.5) Neutrophils (%) (Auto) 44.9% (33-66) Lymphocytes (%) (Auto) 34.9% (23-45) Monocytes (%) (Auto) 13.6% (0-9.0) Eosinophils (%) (Auto) 6.1% (0-4) Basophils (%) (Auto) 0.4% (0-2) Absolute Immature Granulocyte (auto 0.01T/MM3 (0.00-0.03) Absolute Neutrophils (auto) 3.4T/MM3 (1.8-7.7) Absolute Lymphocytes (auto) 2.7T/MM3 (1-4.8) Absolute Monocytes (auto) 1.0T/MM3 (0-0.8) Absolute Eosinophils (auto) 0.5T/MM3 (0-0.5) Absolute Basophils (auto) 0.0T/MM3 (0-0.2) Turbidity < 20 (0-20) Sodium Level 144MEQ/L (134-144) Potassium Level 3.7MEQ/L (3.6-5) Chloride Level 111MEQ/L (98-107) Carbon Dioxide Level 24MEQ/L (22-30) Anion Gap 9MEQ/L (5-15) Blood Urea Nitrogen 11.0MG/DL (9-20) Creatinine 0.8MG/DL (0.8-1.5) Glomerular Filtration Rate Calc 109 BUN/Creatinine Ratio 14RATIO (6-26) Glucose Level 107MG/DL (75-110) Calculated Osmolality 276MOSM/KG (261-280) Calcium Level 9.0MG/DL (8.4-10.2) Total Bilirubin 0.60MG/DL (0.20-1.30) Icterus Index < 2 (0-7) Aspartate Amino Transf (AST/SGOT) 117U/L (17-59) Alanine Aminotransferase (ALT/SGPT) 98U/L (21-72) Alkaline Phosphatase 60U/L (38-126) Total Protein 6.2G/DL (6.3-8.2) Albumin 3.7G/DL (3.5-5.0) Globulin 2.5G/DL (2.4-3.6) Albumin/Globulin Ratio 1.5RATIO (1.1-2.2) Chemistry Specimen Hemolysis < 15 (0-25) Radiology DATE OF EXAM: 04/04/17 ORDERING DOCTOR: ERNIE DAMON MD TYPE OF EXAM: CT HEAD W/O CONTRAST REASON FOR EXAM: fall several days ago with seizure and hallucinations EXAM: CT HEAD W/O CONTRAST COMPARISON: None available. HISTORY: ITS.REASON: fall several days ago with seizure and hallucinations LOC[place]CT[place] [facility] [place]CHNIQUE: Axial images were obtained through the brain without IV contrast. Study is reviewed in brain, bone, subdural, and soft tissue windows. The current CT scan was performed using radiation dose-reduction techniques. FINDINGS: The monzon-white junctions are distinct. No sulcal effacement is identified. There is no evidence for intracranial hemorrhage. The cerebrospinal fluid spaces appear unremarkable. No abnormal extra-axial fluid collections are identified to suggest subdural or epidural hematoma. The midline structures appear unremarkable as well. There is no evidence for midline shift or mass effect. The suprasellar cistern and quadrigeminal plate cisterns are intact. No osseous abnormalities are identified. There is no evidence for displaced skull fracture. No space occupying mass is identified. No definite evidence for acute or subacute ischemia is identified. The mastoid air cells are clear. The paranasal sinuses able to be visualized are clear. IMPRESSION: Unremarkable exam. NOTE: This study was reviewed via teleradiology by [facility] and a preliminary impression consistent with above findings was conveyed to the ordering clinician immediately after the exam. History of Present Illness From the admission HPI: "36 yo M with PMH of EtOH abuse and suicidial ideation wtih admission to psychiatric facility in September of 2016 presented to the ED tonight with his who reports he has been having seizures, hallucinations and multiple falls at home. All associated with alcohol intoxication and alcohol withdrawal. Patient has been drinking large amounts of alcohol daily for about 3 months, he reports a 750ml bottle of vodka a day. Each time the patient tries to drinking , he has severe shaking episodes, severe body spasms, and begins having hallucinations of people who were not there, animals which are not in the house , as well as not recognizing people that he normally knows. Tonight the patient has had all of those symptoms, including a fall earlier in the week that seemed to increase his symptoms, when his found him at home. [place], and checks on him frequently, they are currently . Patient was found to have severe volume depletion in the ED with hypotension and increased BUN and Cr. He was admitted for further IVF and monitoring for his delirium tremens." Hospital Course 04/07/2017 Severe delirium tremens on admission-markedly improving on high dose scheduled librium Probable seizures related to delirium tremens Acute kidney injury secondary to dehydration-resolved Hypertension-chronically on lisinopril but on hold initially with acute kidney injury, stable BP on benzodiazepines Dehydration-improved with IVF Alcoholism with acute alcohol intoxication on admission, previous failed IP and OP treatment Hypokalemia-resolved with replacement Depression with history of hospitalization at [place] for SI, denies any SI currently Anemia with normal B-12 and folate and high iron level Plan Holding librium acutely to determine if he has further withdrawal symptoms Do not plan to discharge with benzodiazepines and I feel he is very high risk for further drinking at home Continue lisinopril for hypertension Psych recommendations reviewed; appreciate assistance Discussed with case management, has [facility] intake on 5/15 AM and [facility] could pick him up from there for admission if he is willing Recommended to him that he remain inpatient, transfer to the floor, continue on librium taper the next 2 days and discharge to his [facility] assessment Hemochromatosis gene analysis ordered and pending due to high Fe levels If he chooses to discharge, will allow him to go later today and f/u OP with [facility] and intake for IP rehab Problems: (1) Delirium tremens Status: Acute Assessment & Plan: Due to Etoh use and withdrawal at home. Patient admitted to the ICU, put on seizure precautions and currently on librium 50 mg Q6H scheduled. Wants to quit drinking. (2) Acute renal insufficiency Status: Acute Assessment & Plan: due to dehydration from 3 months of alcohol use. Give IVF after banana bag, start D5W with NS and 20 of K. Monitor UOP and BUN/cr. (3) Alcohol intoxication Status: Acute Assessment & Plan: supportive care for withdrawal (4) Dehydration Status: Resolved Assessment & Plan: Resolved with IVF (5) Hypokalemia Status: Resolved Assessment & Plan: Resolved with IV/PO replacement (6) Alcohol abuse Status: Acute Code Status Full Code Home Meds Reported Medications Acetaminophen (Tylenol Arthritis) 650 Mg Tablet.er, 1 TAB PO Q4H Y for PAIN 04/04/17 Lisinopril (Lisinopril) 10 Mg Tablet, 10 MG PO DAILY 04/04/17 Multivitamin (Multi-Day Vitamins) 1 Each Tablet, 1 TAB PO DAILY 04/04/17 Face to Face Encounter I met with patient on the day of dismissal and discussed follow up appointments , medications, and safety plan. Discharge Disposition Discharging in fair condiition to home with friend Kalina as his support person. Declines further inpatient stay for slow librium taper and transition to inpatient rehab. Copies To 1: ROSALINDA RAY AMANDA M MD April 07, 2017 13:45
[2017-04-07] MEDS: OXYCODONE I.R. 5 MG TABLET PO PRN (18:07)
--- NOTE | 2017-04-07 18:39 | NUR ---
STATUS PT A&OX3. RESPONDS APPROPRIATELY WITH CARES. LIBRIUM HELD TODAY, TREMORS NOT OBSERVED. BP ELEVATIONS NOTED, PT REPORTED CHRONIC LOWER BACK PAIN, PROVIDED PRN TYLENOL AND ROXICODONE. PT AMBULATED IN UNIT WITH [facility]. AND THREE CHILDREN VISITED PT THIS AFTERNOON. PT REPORTS HE WILL BE PICKED-UP BY FRIEND, LAVELLE DANGELO. PT REPORTS HE FEELS HE CAN BE SAFE IN HER CARE UNTIL HE IS ABLE TO GO TO HIS [facility] ASSESSMENT.
--- NOTE | 2017-04-07 20:09 | NUR ---
Discharge Instructions reviewed with pt by this RN. Pt verbalizes understanding. Asks questions. Concerned with return of tremors. Requests a home medication to help with tremors should they return. Also, states that the physician had suggested starting him on a home regimine of Zoloft. However, no prescriptions were received. RN contacted Dr. Chauhan, telehospitalist, no new orders. RN encourages pt to contact [facility] for medication management. Should tremors and/or urge to drink alcohol return, ED is always available and willing to help. Pt thankful and verbalizes understanding. Pt states, "I'm done with this. I want to get better." RN offers positive reinforcement and encouragement. RN provides upcoming appointments on back of hospital contact card as follows: Monday 04/09 [facility] assessment at 3pm, Tuesday 04/10 [facility] at 11:15am, and [facility] on Wednesday 04/11.
--- NOTE | 2017-04-07 20:56 | NUR ---
Pain Pt c/o chronic pain to lower back. Rates a 06/04. PRN Tylenol administered.
--- NOTE | 2017-04-07 21:38 | NUR ---
Discharge Pt discharged at this time. Friend, Kalina Holland, present. Ensures pt safety, as well as pt. IVL is removed. Pt's belongings gathered and with patient. Room walked with pt to ensure all items were accounted for. Pt appreciative. Agrees to keep appointments. Departed in Kalina's personal vehicle from ER exit.
--- NOTE | 2017-04-09 14:03 | NUR ---
FOLLOW UP CALL THIS WORKER CALLED AND LEFT MESSAGE AT THIS TIME.
== END 2017-04-07 21:38 | disposition home or self-care (01) | DRG 897 ==
LOC: ED 19:04 → EDHOLD 20:48 → CCU 21:25
PROVIDERS: ADMIT Internal Medicine; ATTEND Internal Medicine
DX: F10.221 Alcohol dependence with intoxication delirium (principal); N17.9 Acute kidney failure, unspecified; E86.0 Dehydration; E87.6 Hypokalemia; I10 Essential (primary) hypertension; F32.9 Major depressive disorder, single episode, unspecified; Y90.6 Blood alcohol level of 120-199 mg/100 ml; F17.200 Nicotine dependence, unspecified, uncomplicated
CPT/HCPCS: 36415; 80053; 80069; 80306; 80307; 81001; 81256; 82607; 82746; 82948; 83540; 83550; 83735; 84100; 84443; 85007; 85025; 85027; 85610; 93005; 99406